=== PATIENT | female | born 2000 | race Caucasian/White ===

== ENCOUNTER 2022-06-14 20:14 | Outpatient (CLI) | payer OTHER ==
[~2022-06-14] VITALS: Ht 157.5 cm; Wt 93.6 kg
--- NOTE | 2022-06-14 20:10 | NUR ---
To unit via wheelchair for labor assessment, accompanied by spouse. Pt panting and groaning, leaning to one side in wheelchair. Changed into gown and assisted onto labor bed. Pt reports sudden onset of pain across top of fundus and lower in pelvis @ 1900, unsure how often states "it's not constant though" SVE as noted, pt doesn't tolerate well. After SVE results reviewed with pt and spouse, pt encouraged to slow her breathing and attempt to relax. 2041 Pt relaxed, social, able to answer questions.
[2022-06-14 20:25] VITALS: BP 122/83; PULSE 100
== END 2022-06-14 21:15 | disposition home or self-care (01) ==
LOC: LDRO 20:14
DX: O62.9 Abnormality of forces of labor, unspecified (principal); Z3A.00 Weeks of gestation of pregnancy not specified